=== PATIENT | male | born 1955 | race Caucasian/White ===

== ENCOUNTER 2017-10-09 06:12 | Emergency (ER) | payer BC ==
[~2017-10-09] VITALS: Ht 172.7 cm; Wt 90.3 kg
[2017-10-09 06:20] VITALS: BP 159/83; PULSE 79; RESP 16; TEMP 97.5; O2SAT 98
[2017-10-09] MEDS ORDERED: LISI-515 PO (06:27)
[2017-10-09] MEDS ORDERED: AMLO10TA2 PO (06:27)
--- NOTE | 2017-10-09 06:33 | PD ---
HPI Chief Complaint: Injury Time Seen by Provider: 06:21 Travel History International Travel<30 days: No Contact w/Intl Traveler<30days: No Traveled to known affect area: No History of Present Illness HPI The patient is a 62-year-old [id number] male that was jogging at 5:30 this morning when he fell on his left hand and hurt his left third finger. He sustained a laceration of that finger. His last tetanus shot was within 5 years ago. [facility] Past Medical History Autoimmune Disease: Yes Gastrointestinal Disorders: No Past Surgical History Other Surgery: Yes (L SHOULDER, R KNEE, R HAMSTRINGS, R ROTATOR CUFF, R ELBOW, JAW, R LEG) Social History Alcohol Use: Yes (OCC BEER) Tobacco Use: No Substance Use: No Allergies-Medications (Allergen,Severity, Reaction): Coded Allergies: No Known Allergies (Verified Adverse Reaction, Unknown, 10/09/17) Reported Meds & Prescriptions Reported Meds & Active Scripts Active Reported Amlodipine (Amlodipine Besylate) 10 Mg Tab 10 Mg PO DAILY Lisinopril 20 Mg Tab 20 Mg PO DAILY Review of Systems Except as stated in HPI: all other systems reviewed are Neg Physical Exam Narrative GENERAL: The patient is alert, oriented 3 in moderate apparent distress with his left third finger pain. His temperature is 97.5 and blood pressure 159/83 but the rest the vital signs are normal. SKIN: Focused skin assessment warm/dry. There is a 1.5 cm laceration at the volar, ulnar PIP joint, not deep into the joint. HEAD: Atraumatic. Normocephalic. EYES: Pupils equal and round. No scleral icterus. No injection or drainage. ENT: No nasal bleeding or discharge. Mucous membranes pink and moist. NECK: Trachea midline. No JVD. CARDIOVASCULAR: Regular rate and rhythm. No murmur appreciated. RESPIRATORY: No accessory muscle use. Clear to auscultation. Breath sounds equal bilaterally. GASTROINTESTINAL: Abdomen soft, non-tender, nondistended. Hepatic and splenic margins not palpable. MUSCULOSKELETAL: No clubbing. No cyanosis. No edema. There is a 1-1/2 cm laceration over the volar/ulnar PIP joint of the left third finger. Good capillary refill and pinprick is present distally on that finger. There is a deformity indicating a dorsal dislocation at the PIP joint of the left third finger. NEUROLOGICAL: Awake and alert. No obvious cranial nerve deficits. Motor grossly within normal limits. Normal speech. PSYCHIATRIC: Appropriate mood and affect; insight and judgment normal. Data Data Last Documented VS Vital Signs Date Time Temp Pulse Resp B/P (MAP) Pulse Ox O2 Delivery O2 Flow Rate FiO2 10/09/17 06:24 Room Air 10/09/17 06:20 97.5 79 16 159/83 (108) 98 Orders Orders Finger ([id number]) (10/09/17 06:21) Lidocaine 1% Inj (Xylocaine 1% Inj) (10/09/17 06:45) Finger ([id number]) (10/09/17 ) Splint Or Brace Apply/Monitor (10/09/17 06:54) [facility] Medical Decision Making Medical Screen Exam Complete: Yes Emergency Medical Condition: Yes Medical Record Reviewed: Yes Differential Diagnosis Dislocation PIP joint, fracture finger, contusion finger Narrative Course The laceration does not need suturing. It will be bandaged. The patient has a dorsal dislocation of the left third finger at the PIP joint. This was reduced after a digital block. The patient is told to follow-up with a hand surgeon, he is told about long-term deformities that may develop if the central slip is torn. Procedures Procedure Narrative A digital block was done and the PIP joint was reduced. The patient tolerated the procedure well. Diagnosis Primary Impression: Dislocation of proximal interphalangeal joint of left middle finger Additional Instructions: As we discussed, follow-up with hand surgery. If you have any problems with the finger, please return to emergency department. After 2 days change the bandage on the finger and then it requires daily bandage changes. Keep the finger clean and dry. Disposition: 01 DISCHARGE HOME Condition: Stable Jorge Saucedo MD Oct 09, 2017 06:33
--- NOTE | 2017-10-09 06:43 | RADRPT ---
EXAM DATE/TIME: 10/09/2017 06:29 [facility] COMPARISON: No previous studies available for comparison. INDICATIONS : Left third digit pain post fall today MEDICAL HISTORY : None. SURGICAL HISTORY : None. ENCOUNTER: Initial ACUITY: 1 day PAIN SCORE: 7/10 LOCATION: Left 3rd PIP joint FINDINGS: 3 views left third digit. Dorsal dislocation of the third digit middle phalanx at the PIP joint. No f racture identified. CONCLUSION: Dorsal dislocation long finger middle phalanx. Darnell Martínez MD on October 09, 2017 at 6:40 Board Certified Radiologist. This report was verified electronically.
[2017-10-09] MEDS ORDERED: LIDOCAINE HCL 1% 20 ML VIAL INFIL ONE (06:45)
--- NOTE | 2017-10-09 07:27 | RADRPT ---
EXAM DATE/TIME: 10/09/2017 06:55 [facility] COMPARISON: FINGER LEFT 3RD DIGIT ([id number]), October 09, 2017, 6:29. INDICATIONS : Post reduction third digit MEDICAL HISTORY : None. SURGICAL HISTORY : None. ENCOUNTER: Subsequent ACUITY: 1 day PAIN SCORE: 0/10 LOCATION: Left 3rd digit FINDINGS: Previously seen dislocation of the proximal interphalangeal joint of the left long finger has been re duced into normal alignment. Current lateral view shows a focal, minimally displaced fracture fragmen t off of the volar base of the middle phalanx. A similar fracture is seen off of an adjacent digit wh ich I believe is the pointer finger, possibly acute. Please correlate clinically. CONCLUSION: 1. Dorsal dislocation of the long finger proximal interphalangeal joint has been reduced into normal alignment. 2. There are minimally displaced volar plate fractures of the long and I believe pointer finger proxi mal interphalangeal joints. Edenilson Cole MD on October 09, 2017 at 7:21 Board Certified Radiologist. This report was verified electronically.
== END 2017-10-09 07:21 | disposition home or self-care (01) ==
LOC: PHED 06:12
DX: S63.283A Dislocation of proximal interphalangeal joint of left middle finger, initial encounter (principal); D89.89 Other specified disorders involving the immune mechanism, not elsewhere classified; W19.XXXA Unspecified fall, initial encounter; Z79.899 Other long term (current) drug therapy
CPT/HCPCS: 26770; 73140